=== PATIENT | female | born 1990 | race Two or more races ===

== ENCOUNTER 2016-03-23 19:00 | Emergency (ER) | payer OTHER ==
[~2016-03-23] VITALS: Ht 160 cm; Wt 63.5 kg
[2016-03-23] MEDS ORDERED: SUMATRIPTAN SUCCINATE 6 MG/0.5 ML VIAL SQ ONE ×2 (22:30→22:32)
[2016-03-23] MEDS ORDERED: METOCLOPRAMIDE HCL 10 MG/2 ML VIAL IV ONE (22:30)
[2016-03-23] MEDS ORDERED: IV NS 0.9% 1,000 ML BAG IV ONE (22:30)
[2016-03-23] MEDS ORDERED: IV SET PRIMARY PUMP SET 1 EA INFUS.SET MC ONE (22:32)
[2016-03-23] MEDS ORDERED: METOCLOPRAMIDE HCL 10 MG/2 ML VIAL ONE (22:32)
[2016-03-23] MEDS ORDERED: IV NS 0.9% 1,000 ML ONE (22:32)
[2016-03-23 23:16] VITALS: BP 130/89
== END 2016-03-23 23:17 | disposition home or self-care (01) ==
LOC: ER 19:04
DX: G43.909 Migraine, unspecified, not intractable, without status migrainosus (principal); R11.2 Nausea with vomiting, unspecified
CPT/HCPCS: 96361; 96372; 96374; 99284; A4606; J2765; J3030; J7030; Z7610